=== PATIENT | male | born 1945 | race Caucasian/White ===

== ENCOUNTER → 2017-04-19 | Outpatient (CLI) | payer BC ==
[~2017-04-19] MED LIST: MULT-506 PO; VITA400C15 PO
--- NOTE | 2017-04-19 12:36 | DIAGNOSTIC IMAGING REPORT ---
CERVICAL SPINE MRI HISTORY: Neck pain. TECHNIQUE: Multiplanar multisequence MRI of the cervical spine was performed without the use of contrast. COMPARISON STUDY: None. FINDINGS: Alignment and curvature are intact. There are no fractures within the cervical spine. Visualized posterior fossa is unremarkable. The cervical spinal cord demonstrates a normal signal intensity. Mild disc space narrowing at C5-C6. Prevertebral soft tissues and the C1-C2 interval are intact. Moderate facet degenerative changes seen throughout the cervical spine. C2-C3: No significant central canal or neural foraminal narrowing. C3-C4: Broad-based posterior disc osteophyte complex asymmetric to the left. This results in near complete effacement of the anterior thecal sac without cord deformity. There is also severe left-sided neural foraminal narrowing due to the disc bulge, uncovertebral hypertrophy and facet hypertrophy. C4-C5: Small focal central disc protrusion which abuts but does not significantly deform the anterior cord. There is mild left-sided neural foraminal narrowing. C5-C6: Broad-based posterior disc osteophyte complex which abuts and slightly deforms anterior cord. There is also severe bilateral neural foraminal narrowing due to the uncovertebral and facet hypertrophy. C6-C7: Broad-based posterior disc bulge asymmetric to the left results in minimal left anterior cord deformity. No significant neural foraminal narrowing. C7-T1: No significant central canal or neural foraminal narrowing. IMPRESSION: 1. Multilevel cervical spondylosis as described above most pronounced at the C5-C6 level where there is a broad-based posterior disc osteophyte complex and facet hypertrophy resulting in mild anterior cord deformity and severe bilateral neural foraminal narrowing. 2. No fracture or subluxation. Electronically signed by: Joao Reina M.D. 04/19/2017 12:34 PM Dictated Date/Time: 04/19/2017 12:26 PM
== END | disposition home or self-care (01) ==
LOC: C.MRI 11:17
PROVIDERS: ATTEND Family Medicine
DX: M47.892 Other spondylosis, cervical region (principal); R20.0 Anesthesia of skin; M12.88 Other specific arthropathies, not elsewhere classified, other specified site; M50.30 Other cervical disc degeneration, unspecified cervical region; M25.78 Osteophyte, vertebrae

== ENCOUNTER → 2017-05-25 | Outpatient (CLI) | payer BC ==
--- NOTE | 2017-05-25 09:43 | DIAGNOSTIC IMAGING REPORT ---
CERVICAL SPINE MRI HISTORY: M54.2,CERVICALGIA TECHNIQUE: Multiplanar multisequence MRI of the cervical spine was performed without the use of contrast. Flexion and extension sequences were also obtained. COMPARISON STUDY: Cervical spine MRI 04/19/2017. FINDINGS: Alignment and curvature are maintained throughout flexion and extension. Specifically, the C1-C2 interval is within normal limits and measures 1 mm. This is unchanged throughout flexion and extension. Prevertebral soft tissues are intact. The visualized posterior fossa is unremarkable. Cervical spinal cord demonstrates a normal signal intensity. No fractures identified within the cervical spine. Mild disc space narrowing at C5-C6, unchanged. 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 C2-C3: No significant central canal or neural foraminal narrowing. C3-C4: Small broad-based posterior disc osteophyte complex without significant central canal narrowing. There are severe left-sided neural foraminal narrowing due to the uncovertebral and facet hypertrophy. C4-C5: Tiny focal central disc protrusion resulting in partial effacement of the anterior thecal sac without cord deformity. Mild left-sided neural foraminal narrowing, unchanged. C5-C6: Broad-based posterior disc osteophyte complex which abuts and slightly deforms anterior cord. There is also severe bilateral neural foraminal narrowing, unchanged. The degree of anterior cord deformity/central canal narrowing increases on the extension sequences but is improved on the flexion sequences. C6-C7: Broad-based posterior disc osteophyte complex asymmetric to the left which results in minimal left anterior cord deformity. No significant neural foraminal narrowing. C7-T1: No significant central canal or neural foraminal narrowing. IMPRESSION: 1. No significant change in the multilevel cervical spondylosis as described above most pronounced at the C5-C6 level. The degree of central canal narrowing/cord deformity at this level increases on the extension series but improves on the flexion series. 2. The C1-C2 interval remains intact throughout flexion and extension. Electronically signed by: Joao Reina M.D. 05/25/2017 9:42 AM Dictated Date/Time: 05/25/2017 9:32 AM
== END | disposition home or self-care (01) ==
LOC: C.MRIBC 07:28
PROVIDERS: ATTEND Neurological Surgery
DX: M47.892 Other spondylosis, cervical region (principal)

== ENCOUNTER → 2018-02-07 | Outpatient (CLI) | payer OTHER ==
--- NOTE | 2018-02-07 13:50 | DIAGNOSTIC IMAGING REPORT ---
THREE-PHASE NUCLEAR BONE SCAN OF THE HIPS AND PELVIS CLINICAL HISTORY: Right hip pain. COMPARISON STUDY: Three-phase bone scan of the hips and pelvis dated 01/08/2009. Pelvic x-ray dated 08/08/2007. TECHNIQUE: Following the IV administration of 27.5 mCi of technetium 99m MDP, three-phase bone scan of the hips and pelvis was performed. Anterior and posterior flow and blood flow phase imaging was acquired. Bone phase imaging of the hips and pelvis was performed at three hours in multiple obliquities. FINDINGS: No hyperemia is identified within the hips or bony pelvis on the flow or blood pool phase imaging. 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 No abnormal tracer deposition is identified around either arthroplasty. There is no evidence of a destructive bony lesion. There is expected excreted activity within the bladder. IMPRESSION: 1. Three-phase negative bone scan of the hips and bony pelvis. 2. No abnormal bone phase activity is seen. Electronically signed by: Bautista Ruvalcaba M.D. 02/07/2018 1:48 PM Dictated Date/Time: 02/07/2018 1:45 PM
== END | disposition home or self-care (01) ==
LOC: C.NUCL 09:39
PROVIDERS: ATTEND Physician Assistant Medical
DX: Z96.649 Presence of unspecified artificial hip joint (principal)